=== PATIENT | female | born 1990 | race Asian ===

== ENCOUNTER 2018-05-14 03:36 | Emergency (ER) | payer SELFPAY ==
[~2018-05-14] VITALS: Ht 170.2 cm; Wt 45.4 kg
[2018-05-14 03:36] VITALS: BP 129/71
--- NOTE | 2018-05-14 04:01 | Emergency Room Report ---
History of Present Illness General Chief Complaint: Alcohol Intoxication Source: Patient, EMS Present Illness HPI Is a 27-year-old female came in as a Gloria Mckinnon. She was found sleeping on top of her car inside a parking garage. She has a strong odor of an alcoholic beverage is on her breath. Initially she was not cooperative would not give any history to EMS and police. She was brought here for evaluation. Here she was able to give her name. She admits to drinking with her friends but did not know where they are. Does not know where her phone or her purse is. No trauma. Denies any other complaint. Denies any drug use. Allergies: Coded Allergies: UNABLE TO ASSESS (Unverified , 05/14/18) Patient History Past Medical History: see triage record, old chart reviewed Past Surgical History: none Pertinent Family History: none Social History: Reports: alcohol use Now: No Immunizations: other Reviewed Nursing Documentation: PMH: Agreed; PSxH: Agreed Nursing Documentation-PMH Past Medical History: Deferred Review of Systems Eye: Denies: eye pain, blurred vision ENT: Denies: ear pain, nose congestion, throat swelling Respiratory: Denies: cough, shortness of breath Cardiovascular: Denies: chest pain, palpitations Gastrointestinal: Denies: abdominal pain, diarrhea, nausea, vomiting Musculoskeletal: Denies: back pain, joint pain Skin: Denies: rash Neurological: Denies: headache, numbness Endocrine: Denies: increased thirst, increased urine Hematologic/Lymphatic: Denies: easy bruising All Other Systems: negative except mentioned in HPI Physical Exam Vital Signs Date Time Temp Pulse Resp B/P (MAP) Pulse Ox O2 Delivery O2 Flow Rate FiO2 05/14/18 03:24 97.8 105 19 129/71 95 Room Air 97.9 vitals normal Sp02 EP Interpretation: reviewed, normal General Appearance: well appearing, no apparent distress, alert, other - Intoxicated Head: normocephalic, atraumatic Eyes: bilateral eye PERRL, bilateral eye EOMI ENT: hearing grossly normal, normal pharynx Neck: full range of motion, supple, no meningismus Respiratory: chest non-tender, lungs clear, normal breath sounds Cardiovascular #1: regular rate, rhythm, no murmur Gastrointestinal: normal bowel sounds, non tender, no mass, no organomegaly, no bruit, non-distended Musculoskeletal: back normal, gait/station normal, normal range of motion Psychiatric: mood/affect normal Skin: warm/dry Medical Decision Making Diagnostic Impression: Primary Impression: Acute alcoholic intoxication Qualified Codes: F10.929 - Alcohol use, unspecified with intoxication, unspecified ER Course Patient presents with alcohol intoxication. No evidence of any injury to warrant x-ray or CT scan. We'll discharge home once she is more clinically sober. Last Vital Signs Date Time Temp Pulse Resp B/P (MAP) Pulse Ox O2 Delivery O2 Flow Rate FiO2 05/14/18 03:24 97.8 105 19 129/71 95 Room Air 97.9 Status: improved Disposition: HOME, SELF-CARE Condition: Stable Patient Instructions: Alcohol Intoxication, Uoat-fo-Shep Additional Instructions: Abstain from drinking to excess. Follow-up with your doctor in 7 days. Return if worse. SANTI GROVER M.D. May 14, 2018 04:01
[2018-05-14 07:02] VITALS: BP_SYST 106; BP_SYST 96; BP_DIAS 39; BP_DIAS 59
[2018-05-14 07:13] VITALS: BP 106/59
== END 2018-05-14 07:13 | disposition home or self-care (01) ==
LOC: EDBD 03:36 → EMR 04:09
DX: F10.929 Alcohol use, unspecified with intoxication, unspecified (principal)
CPT/HCPCS: 36415; 99283; G0480; 80329